=== PATIENT | female | born 1985 ===

== ENCOUNTER 2018-02-16 22:27 | Emergency (ER) | payer MEDICAID ==
[2018-02-16 22:27] VITALS: BMI 30.9
[2018-02-16 22:49] VITALS: BP 108/73; PULSE 80; RESP 14; TEMP 98.3; O2SAT 98
[2018-02-16] MEDS ORDERED: Dexamethasone 4 mg/1 ml IM STA (23:16)
[2018-02-16] MEDS ORDERED: Dexamethasone 4 mg/1 ml ONE (23:32)
--- NOTE | 2018-02-16 23:53 | C.PDOC ---
History Of Present Illness 32 year old female presents to the ER with a complaint of back pain for the past week that radiates down the legs, associated with neck pain for the past 2- 3 days. Patient states she also occasionally gets pain radiating from her neck down to her right arm with a tingling sensation to the right hand. Denies chest pain, SOB, dysuria, fever, weakness, numbness, or incontinence. Time Seen by Provider: 02/16/18 23:03 Chief Complaint (Nursing): Back Pain History Per: Patient History/Exam Limitations: no limitations Onset/Duration Of Symptoms: Days Current Symptoms Are (Timing): Still Present Quality Of Discomfort: Unable To Describe Previous Symptoms: None Associated Symptoms: None Exacerbating Factor(s): Nothing Recent travel outside of the [place]: No Past Medical History Reviewed: Historical Data, Nursing Documentation, Vital Signs Vital Signs: Last Vital Signs Temp 98.3 F 02/16/18 22:37 Pulse 80 02/16/18 22:37 Resp 14 02/16/18 22:37 BP 108/73 02/16/18 22:37 Pulse Ox 98 02/16/18 23:57 Family History: States: No Known Family Hx - Social History Hx Alcohol Use: No Hx Substance Use: No - Immunization History Hx Tetanus Toxoid Vaccination: No Hx Influenza Vaccination: No Hx Pneumococcal Vaccination: No Review Of Systems Except As Marked, All Systems Reviewed And Found Negative. Constitutional: Negative for: Fever, Chills Cardiovascular: Negative for: Chest Pain Respiratory: Negative for: Cough, Shortness of Breath Genitourinary: Negative for: Dysuria, Incontinence, Hematuria Musculoskeletal: Positive for: Neck Pain, Arm Pain (Radiating from neck), Back Pain, Leg Pain (Radiating from back) Neurological: Negative for: Weakness, Numbness Physical Exam - Physical Exam Appears: Non-toxic Skin: Normal Color, Warm, Dry, No Rash Head: Atraumatic, Normacephalic Eye(s): bilateral: Normal Inspection, PERRL, EOMI Oral Mucosa: Moist Neck: Normal, Supple Chest: Symmetrical, No Tenderness Cardiovascular: Rhythm Regular Respiratory: Normal Breath Sounds, No Rales, No Rhonchi, No Wheezing Gastrointestinal/Abdominal: Soft, No Tenderness Back: No CVA Tenderness, No Vertebral Tenderness, No Paraspinal Tenderness Extremity: Normal ROM (x4), No Swelling Neurological/Psych: Oriented x3, Normal Speech, Normal Motor, Normal Sensation Gait: Steady ED Course And Treatment O2 Sat by Pulse Oximetry: 98 (on RA) Pulse Ox Interpretation: Normal Medical Decision Making Medical Decision Making: Decadron, flexeril, and toradol administered. On reevaluation, patient reports improvement of pain, she is ambulatory in the ER without any pain or difficulty , will discharge home with Rx and instructions to follow up with PMD. Disposition - Disposition Referrals: [facility] at [facility] [Outside] Disposition: HOME/ ROUTINE Disposition Time: 23:00 Condition: GOOD Additional Instructions: Follow up with the medical doctor within 1-2 days. return if worsened. Prescriptions: Cyclobenzaprine [Flexeril] 5 mg PO TID #21 tab Naproxen [Naprosyn] 500 mg PO BID #20 tab Instructions: Radiculopathy, Low Back Pain (DC) Forms: [facility] (Lebanese) - Clinical Impression Clinical Impression: Low back pain, Cervical radiculopathy - PA / REVIEW RN / Resident Statement MD/DO has reviewed & agrees with the documentation as recorded. - Scribe Statement The provider has reviewed the documentation as recorded by the Scribe Thierry Sinha All medical record entries made by the Marceloibmaribel were at my direction and personally dictated by me. I have reviewed the chart and agree that the record accurately reflects my personal performance of the history, physical exam, medical decision making, and the department course for this patient. I have also personally directed, reviewed, and agree with the discharge instructions and disposition.
--- NOTE | 2018-02-16 23:57 | C.PDOC ---
Time Seen by Provider: 02/16/18 23:03 Chief Complaint (Nursing): Back Pain Past Medical History Vital Signs: Last Vital Signs Temp 98.3 F 02/16/18 22:37 Pulse 80 02/16/18 22:37 Resp 14 02/16/18 22:37 BP 108/73 02/16/18 22:37 Pulse Ox 98 02/16/18 23:55 Family History: States: Unknown Family Hx - Social History Hx Alcohol Use: No Hx Substance Use: No - Immunization History Hx Tetanus Toxoid Vaccination: No Hx Influenza Vaccination: No Hx Pneumococcal Vaccination: No ED Course And Treatment O2 Sat by Pulse Oximetry: 98 Disposition - Disposition Disposition: HOME/ ROUTINE Disposition Time: 23:57 Condition: IMPROVED Forms: [facility] [facility] (Croatian) - Clinical Impression Clinical Impression: Low back pain, Cervical radiculopathy
== END 2018-02-17 00:06 | disposition home or self-care (01) ==
LOC: C.ER 22:27
DX: M54.12 Radiculopathy, cervical region (principal); M54.5 Low back pain
CPT/HCPCS: 96372; 99283; J1100; J1885